=== PATIENT | female | born 1940 | race Caucasian/White ===

== ENCOUNTER 2020-12-28 21:47 | Emergency (ER) | payer MEDICARE, BC ==
--- NOTE | 2020-12-28 22:47 | EDM.PDOC ---
ED HPI GENERAL MEDICAL PROBLEM - General Chief Complaint: General Stated Complaint: NEW MEDICATION, HEADACHE, HIGH BP Time Seen by Provider: 12/28/20 22:25 Source of Information: Reports: Patient, Old Records, RN History Limitations: Reports: No Limitations - History of Present Illness INITIAL COMMENTS - FREE TEXT/NARRATIVE: 80 yo female was recently started on 40 mg daily prednisone for wheezing and now tonight noticed she had a KNOWLES and her BP was elevated. She is now overdue for her evening dose of her BP meds. Her breathing feels fully back to normal. Now in the ER her KNOWLES is gone. Onset: Gradual Onset Date: 12/28/20 Duration: Hour(s):, Constant Location: Reports: Head, Generalized Quality: Reports: Ache (head, now gone) Severity: Mild Improves with: Reports: Other (unsure) Worsens with: Reports: Other (? 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) Headache Pain Score (Numeric/FACES): 6 - Related Data Allergies Allergy/AdvReac Type Severity Reaction Status Date / Time No Known Allergies Allergy Verified 03/30/14 14:09 Home Meds: Home Meds Aspirin [Ecotrin] 81 mg PO BEDTIME 10/14/13 [History] Levothyroxine Sodium [Synthroid] 100 mcg PO DAILY 10/14/13 [History] Multivitamin [Multivitamins] 1 cap PO DAILY 10/14/13 [History] Propranolol [Inderal] 40 mg PO DAILY 10/14/13 [History] lisinopriL [Prinivil] 10 mg PO BEDTIME 10/14/13 [History] Mecobalamin [B12 Active] 500 mcg PO DAILY 12/28/20 [History] Rosuvastatin [Crestor] 10 mg PO BEDTIME 12/28/20 [History] predniSONE [Prednisone] 40 mg PO DAILY 12/28/20 [History] Social & Family History - Tobacco Use Tobacco Use Status *Q: Never Tobacco User - Caffeine Use Caffeine Use: Reports: None - Recreational Drug Use Recreational Drug Use: No ED ROS GENERAL - Review of Systems Review Of Systems: See Below Constitutional: Reports: No Symptoms, Weight Gain Respiratory: Reports: No Symptoms Cardiovascular: Reports: Blood Pressure Problem Endocrine: Reports: No Symptoms GI/Abdominal: Reports: No Symptoms : Reports: No Symptoms Musculoskeletal: Reports: No Symptoms Skin: Reports: No Symptoms Neurological: Reports: Headache (now gone) Psychiatric: Reports: No Symptoms ED EXAM, GENERAL - Physical Exam Exam: See Below Exam Limited By: No Limitations General Appearance: Alert, WD/WN, No Apparent Distress, Obese Eye Exam: Bilateral Eye: Normal Inspection Ears: Normal External Exam, Normal Canal, Hearing Grossly Normal Ear Exam: Bilateral Ear: Auricle Normal, Canal Normal Nose: Normal Inspection, No Blood Throat/Mouth: Normal Inspection, Normal Lips, Normal Oropharynx, Normal Voice, No Airway Compromise Head: Atraumatic, Normocephalic Neck: Normal Inspection Respiratory/Chest: No Respiratory Distress, Lungs Clear, Normal Breath Sounds, No Accessory Muscle Use Cardiovascular: Regular Rate, Rhythm, No Edema GI/Abdominal: Normal Bowel Sounds, Soft, Non-Tender, No Distention Back Exam: Normal Inspection. No: CVA Tenderness (R), CVA Tenderness (L) Extremities: Normal Inspection, Normal Range of Motion, Non-Tender, No Pedal Edema Neurological: Alert, Oriented, CN II-XII Intact, Normal Cognition, No Motor/Sensory Deficits Psychiatric: Normal Affect, Normal Mood Skin Exam: Warm, Dry, Intact, Normal Color, No Rash Course - Vital Signs Last Recorded V/S: Last Vital Signs Temp 36.3 C 12/28/20 22:14 Pulse 85 12/28/20 22:14 Resp 16 12/28/20 22:14 BP 171/76 H 12/28/20 22:14 Pulse Ox 97 12/28/20 22:14 Departure - Departure Time of Disposition: 22:50 Disposition: Home, Self-Care 01 Condition: Good Clinical Impression: Systolic hypertension, Medication side effect - Discharge Information *PRESCRIPTION DRUG MONITORING PROGRAM REVIEWED*: Not Applicable *COPY OF PRESCRIPTION DRUG MONITORING REPORT IN PATIENT AFIA: Not Applicable Referrals: Sandeep Marin MD [Primary Care Provider] - Additional Instructions: Try to take your BP meds as close as possible to your due time. Reduce your prednisone to 20 mg tomorrow and if you are still feeling and breathing OK try stopping it. Avoid salt or salty foods to reduce your fluid retention and BP elevations. Acetaminophen up to 1000 mg every 6 hrs as needed. Recheck as needed. Sepsis Event Note (ED) - Evaluation Sepsis Screening Result: No Definite Risk - Focused Exam Vital Signs: Vital Signs Temp Pulse Resp BP Pulse Ox 12/28/20 22:14 36.3 C 85 16 171/76 H 97 12/28/20 22:07 36.3 C 85 16 171/76 H 97
== END 2020-12-28 22:57 | disposition home or self-care (01) ==
LOC: JP.ED 21:47
DX: I10 Essential (primary) hypertension (principal); R06.2 Wheezing; T38.0X5A Adverse effect of glucocorticoids and synthetic analogues, initial encounter; Z79.82 Long term (current) use of aspirin; Z79.899 Other long term (current) drug therapy
CPT/HCPCS: 99283

== ENCOUNTER 2021-04-15 08:23 | Day surgery (SDC) | payer MEDICARE, BC ==
[~2021-04-15 08:23] MED LIST: Propofol 200 MG/20 ML SDV ONE; fentaNYL 100 MCG/2 ML SDV ONE
[2021-04-15] MEDS ORDERED: Sodium Chloride 0.9% 1,000 ML IV SCH (09:00)
--- NOTE | 2021-04-15 12:04 | OR ---
DATE OF PROCEDURE: 04/15/2021 SURGEON: Manny Lynn MD PROCEDURE: Colonoscopy. FINDINGS: 1. Diverticulosis, mild, limited to sigmoid colon. 2. Tortuous sigmoid colon. COMPLICATIONS: None. ORACLE DBA: None. ANESTHESIA: MAC. PREOPERATIVE DIAGNOSIS: Screening colonoscopy. POSTOPERATIVE DIAGNOSIS: Screening colonoscopy. RISKS: Risks, benefits, alternatives, and limitations including, but not limited to infection, bleeding, perforation, false positives and false negatives were explained to the patient and she wished to proceed. PROCEDURE IN DETAIL: The patient was placed in left lateral decubitus position. Digital rectal exam was performed without abnormality. Scope was introduced and advanced atraumatically to the ileocecal valve. A photo was taken of this. Scope was brought back to the ascending, transverse, descending colon, and retroflexed. No evidence of old or new blood. No masses. No polyps. Diverticulosis was described as mild, mostly limited to sigmoid colon without evidence of diverticulitis or bleeding. No abnormalities on retroflexion. Greater than 8 minutes was spent removing the scope. The prep was acceptable, approximately 85% of the luminal surface could be seen. Manny Lynn MD /[id number]
== END 2021-04-15 10:52 | disposition home or self-care (01) ==
LOC: JP.SDS 08:23
PROVIDERS: ATTEND Surgery
DX: Z12.11 Encounter for screening for malignant neoplasm of colon (principal); K57.30 Diverticulosis of large intestine without perforation or abscess without bleeding; I10 Essential (primary) hypertension; J43.9 Emphysema, unspecified
CPT/HCPCS: G0121; J2704; J3010; J7030

== ENCOUNTER 2021-09-17 17:25 | Emergency (ER) | payer MEDICARE, BC | END 2021-09-17 19:35 | disposition home or self-care (01) | LOC: JP.ED 17:25 | DX: R07.89 Other chest pain (principal); I10 Essential (primary) hypertension; E03.9 Hypothyroidism, unspecified; Z79.899 Other long term (current) drug therapy; Z88.8 Allergy status to other drugs, medicaments and biological substances | CPT/HCPCS: 36415; 71046; 71046-26; 80048; 84484; 85027; 93005; 93010; 99282; 99285-25 ==

== ENCOUNTER 2021-12-26 06:14 | Emergency (ER) | payer MEDICARE, BC ==
[2021-12-26] MEDS ORDERED: Adenosine 6 MG/2 ML SDV IVPUSH ONE (06:33)
[2021-12-26 07:25] LABS: TROPONIN I HIGH SENSITIVITY 19.7 pg/mL (<=60.3)
== END 2021-12-26 08:30 | disposition home or self-care (01) ==
LOC: JP.ED 06:14
DX: I47.1 Supraventricular tachycardia (principal); E78.00 Pure hypercholesterolemia, unspecified; I10 Essential (primary) hypertension; E03.9 Hypothyroidism, unspecified; Z88.8 Allergy status to other drugs, medicaments and biological substances; Z79.899 Other long term (current) drug therapy
CPT/HCPCS: 36415; 80048; 84443; 84484; 85025; 93005; 96374; 99285; J0153; 93010; 99283

== ENCOUNTER 2022-03-07 08:49 | Emergency (ER) | payer MEDICARE, BC ==
[2022-03-07] MEDS: Sodium Chloride 0.9% 10 ML Syringe FLUSH PRN (09:03)
== END 2022-03-07 10:45 | disposition home or self-care (01) ==
LOC: JP.ED 08:49
DX: I47.9 Paroxysmal tachycardia, unspecified (principal); J43.1 Panlobular emphysema; G47.33 Obstructive sleep apnea (adult) (pediatric); I10 Essential (primary) hypertension; E03.9 Hypothyroidism, unspecified; E78.00 Pure hypercholesterolemia, unspecified; Z88.8 Allergy status to other drugs, medicaments and biological substances; Z79.899 Other long term (current) drug therapy
CPT/HCPCS: 36415; 80048; 81001; 83735; 84484; 85025; 93005; 99285; J3490

== ENCOUNTER 2022-07-19 08:07 | Emergency (ER) | payer MEDICARE, BC ==
[2022-07-19] MEDS ORDERED: Adenosine 6 MG/2 ML SDV IVPUSH ONE (08:32)
== END 2022-07-19 09:05 | disposition home or self-care (01) ==
LOC: JP.ED 08:07
DX: I47.1 Supraventricular tachycardia (principal); E78.00 Pure hypercholesterolemia, unspecified; I10 Essential (primary) hypertension; K21.9 Gastro-esophageal reflux disease without esophagitis; E03.9 Hypothyroidism, unspecified; Z88.8 Allergy status to other drugs, medicaments and biological substances; Z79.899 Other long term (current) drug therapy; Z79.82 Long term (current) use of aspirin
CPT/HCPCS: 93005; 96374; 99283; J0153; 93010; 99284

== ENCOUNTER 2022-11-05 06:42 | Emergency (ER) | payer MEDICARE, BC ==
[2022-11-05] MEDS ORDERED: Sodium Chloride 0.9% 10 ML Syringe FLUSH PRN (07:26)
[2022-11-05 07:39] LABS: BASOPHILS PERCENT AUTO 0.2 % (0.1-1.3); EOSINOPHILS ABSOLUTE AUTO 0.06 K/uL (0.00-0.40); EOSINOPHILS PERCENT AUTO 0.6 % (0.0-5.4); HEMATOCRIT 36.7 % (34.3-46.0); HEMOGLOBIN 12.6 g/dL (11.2-15.5); IMMATURE GRAN ABSOLUTE AUTO 0.06 K/uL (0.00-0.23); IMMATURE GRAN PERCENT AUTO 0.6 % (0.0-0.7); LYMPHOCYTES ABSOLUTE AUTO 1.47 K/uL (0.8-3.3); MEAN CORPUSCULAR HEMOGLOBIN 32.3 pg (31.6-35.5); MEAN CORPUSCULAR HGB CONC 34.3 g/dL (31.6-35.5); MEAN CORPUSCULAR VOLUME 94.1 fL (81.4-99.0); MONOCYTES ABSOLUTE AUTO 1.14 K/uL (0.20-0.90); MONOCYTES PERCENT AUTO 10.9 % (3.3-12.6); NEUTROPHILS ABSOLUTE AUTO 7.72 K/uL (1.0-7.6); NEUTROPHILS PERCENT AUTO 73.7 % (40.0-78.1); PLATELET COUNT,PLT 158 K/uL (130-375); WHITE BLOOD CELL COUNT,WBC 10.5 K/uL (3.2-11.0)
[2022-11-05 07:44] LABS: BASOPHILS ABSOLUTE AUTO 0.02 K/uL (0.00-0.10)
[2022-11-05 07:57] LABS: ANION GAP 11.5 mmol/L (5.0-14.0); C-REACTIVE PROTEIN 6.25 mg/dL (0.0-0.3); CALCIUM 8.8 mg/dL (8.5-10.1); CREATININE 0.5 mg/dL (0.6-1.0); EST CRCL DRUG DOSING (CG) 62.31 mL/min; POTASSIUM,K 3.5 mmol/L (3.6-5.2)
[2022-11-05 08:04] LABS: APPEARANCE,URINE SLIGHTLY CLOUDY (CLEAR); BILIRUBIN,URINE NEGATIVE (NEGATIVE); COLOR,URINE YELLOW (YELLOW); GLUCOSE,URINE NEGATIVE (NEGATIVE); KETONES,URINE NEGATIVE (NEGATIVE); LEUKOCYTE ESTERASE,URINE TRACE (NEGATIVE); NITRITE,URINE NEGATIVE (NEGATIVE); OCCULT BLOOD,URINE SMALL (NEGATIVE); PROTEIN,URINE NEGATIVE (NEGATIVE); UROBILINOGEN,URINE 0.2 EU/dL (0.2-1.0)
[2022-11-05] MEDS ORDERED: Ondansetron 4 MG/2 ML SDV IVPUSH ONE (08:10)
[2022-11-05 08:15] LABS: AMORPHOUS SEDIMENT,URINE NOT SEEN; BACTERIA,URINE NOT SEEN; EPITHELIAL CELLS,URINE MODERATE; MUCUS,URINE NOT SEEN; WBC,URINE 0-5 (0-5)
[2022-11-05] MEDS ORDERED: Iopamidol 612 MG/ML 100 ML Bottle IV SCH (08:15)
[2022-11-05] MEDS ORDERED: Sodium Chloride 0.9% 50 ML IV SCH (08:15)
[2022-11-05] MEDS: Sodium Chloride 0.9% 10 ML Syringe FLUSH ONE ×2 (08:18→08:31)
[2022-11-05] MEDS ORDERED: Amoxicillin/Clavulanate K 875-125 MG Tab PO ONE (09:22)
== END 2022-11-05 09:35 | disposition home or self-care (01) ==
LOC: JP.ED 06:42
DX: K57.32 Diverticulitis of large intestine without perforation or abscess without bleeding (principal); E78.00 Pure hypercholesterolemia, unspecified; I10 Essential (primary) hypertension; K21.9 Gastro-esophageal reflux disease without esophagitis; E03.9 Hypothyroidism, unspecified; Z88.8 Allergy status to other drugs, medicaments and biological substances; Z79.82 Long term (current) use of aspirin; Z79.899 Other long term (current) drug therapy
CPT/HCPCS: 36415; 74177; 80048; 81001; 83605; 85025; 86140; 96374; 99284; A9270; J2405; J3490; Q9967

== ENCOUNTER 2023-05-13 16:20 | Emergency (ER) | payer MEDICARE, BC ==
[2023-05-13] MEDS ORDERED: Sodium Chloride 0.9% 10 ML Syringe FLUSH PRN (16:34)
[2023-05-13] MEDS ORDERED: Adenosine 6 MG/2 ML SDV IVPUSH ONE ×2 (16:34)
[2023-05-13 16:38] LABS: BASOPHILS ABSOLUTE AUTO 0.02 K/uL (0.00-0.10); BASOPHILS PERCENT AUTO 0.3 % (0.1-1.3); EOSINOPHILS ABSOLUTE AUTO 0.03 K/uL (0.00-0.40); EOSINOPHILS PERCENT AUTO 0.4 % (0.0-5.4); HEMATOCRIT 37.9 % (34.3-46.0); HEMOGLOBIN 13.2 g/dL (11.2-15.5); IMMATURE GRAN ABSOLUTE AUTO 0.02 K/uL (0.00-0.23); IMMATURE GRAN PERCENT AUTO 0.3 % (0.0-0.7); LYMPHOCYTES ABSOLUTE AUTO 2.02 K/uL (0.8-3.3); LYMPHOCYTES PERCENT AUTO 25.6 % (11.4-47.7); MEAN CORPUSCULAR HEMOGLOBIN 31.5 pg (31.6-35.5); MEAN CORPUSCULAR HGB CONC 34.8 g/dL (31.6-35.5); MEAN CORPUSCULAR VOLUME 90.5 fL (81.4-99.0); MONOCYTES ABSOLUTE AUTO 0.57 K/uL (0.20-0.90); MONOCYTES PERCENT AUTO 7.2 % (3.3-12.6); NEUTROPHILS ABSOLUTE AUTO 5.24 K/uL (1.0-7.6); NEUTROPHILS PERCENT AUTO 66.2 % (40.0-78.1); PLATELET COUNT,PLT 261 K/uL (130-375); RED BLOOD CELL COUNT 4.19 M/uL (3.77-5.24); WHITE BLOOD CELL COUNT,WBC 7.9 K/uL (3.2-11.0)
[2023-05-13] MEDS ORDERED: Sodium Chloride 0.9% 1,000 ML IV SCH (16:45)
[2023-05-13 17:11] LABS: ANION GAP 11.4 mmol/L (5.0-14.0); CALCIUM 8.6 mg/dL (8.5-10.1); CREATININE 0.6 mg/dL (0.6-1.0); EST CRCL DRUG DOSING (CG) 51.92 mL/min; POTASSIUM,K 3.4 mmol/L (3.6-5.2)
== END 2023-05-13 18:00 | disposition home or self-care (01) ==
LOC: JP.ED 16:20
DX: I47.10 Supraventricular tachycardia, unspecified (principal); I10 Essential (primary) hypertension; E78.00 Pure hypercholesterolemia, unspecified; E03.9 Hypothyroidism, unspecified; M19.90 Unspecified osteoarthritis, unspecified site; Z79.899 Other long term (current) drug therapy; Z88.8 Allergy status to other drugs, medicaments and biological substances; Z79.82 Long term (current) use of aspirin
CPT/HCPCS: 36415; 80048; 83735; 84484; 85025; 93005; 99285